=== PATIENT | female | born 1980 | race Caucasian/White ===

== ENCOUNTER 2017-08-10 13:33 | Emergency (ER) | payer SELFPAY ==
[2017-08-10 13:39] VITALS: RESP 16; TEMP 98.6
--- NOTE | 2017-08-10 15:03 | EDPHY ---
H & P Time Seen by Provider: 08/10/17 14:55 HPI/ROS: CHIEF COMPLAINT: Pelvic cramping, IUD coming out HISTORY OF PRESENT ILLNESS: 37-year-old female presents with pelvic cramping. Onset pelvic pain this morning. While she was in the shower she was able to feel the IUD extruding from her cervical os. Persistent pelvic cramping throughout the day. No vaginal bleeding, vomiting or dysuria. REVIEW OF SYSTEMS: Constitutional: No fever, no chills Eyes: No visual changes ENT: No sore throat Respiratory: No cough, no shortness of breath Cardiac: No chest pain Gastrointestinal: No nausea, no vomiting Genitourinary: No hematuria, no dysuria Musculoskeletal: No leg pain or swelling Skin: No rash Neurological: No headache, no numbness, no weakness Psychiatric: No depression Past Medical/Surgical History: Rheumatoid arthritis Social History: Smoking Status: Current every day smoker Physical Exam: General Appearance: Alert, pleasant Eyes: Pupils equal and round, no conjunctival pallor ENT, Mouth: Mucous membranes moist Neck: Normal inspection Respiratory: Lungs are clear to auscultation Cardiovascular: Regular rate and rhythm Gastrointestinal: Abdomen is soft, suprapubic tenderness Pelvic exam: BUSV normal, vag vault, IUD extruding thru os, no discharge Neurological: A&O, nonfocal, normal gait Skin: Warm and dry, no rash Extremities: normal inspection Psychiatric: Mood and affect normal Constitutional: Initial Vital Signs Temperature (C) 37.0 C 08/10/17 13:37 Heart Rate 97 08/10/17 13:37 Respiratory Rate 16 08/10/17 13:37 Blood Pressure 131/83 H 08/10/17 13:37 O2 Sat (%) 98 08/10/17 13:37 O2 Delivery Mode Room Air Allergies/Adverse Reactions: No Known Allergies Allergy (Unverified 05/17/15 14:30) Home Medications: Medication Instructions Recorded Humira 08/10/17 Methotrexate 08/10/17 Medical Decision Making ED Course/Re-evaluation: The IUD was easily removed by me with ring tip forceps. Increased pelvic cramping after the IUD removal. Ibuprofen 600 mg orally given. 4 p.m.-Feels better with resolution of pelvic cramping. Wants to go home. Differential Diagnosis: Differential diagnosis includes though it is not limited to ectopic , ovarian cyst, ovarian torsion, PID, UTI, appendicitis. - Data Points Medications Given: Discontinued Medications Ibuprofen (Motrin) 600 mg PO EDNOW ONE Stop: 08/10/17 15:39 Last Admin: 08/10/17 15:52 Dose: 600 mg Departure - Departure Disposition: Home, Routine, Self-Care Clinical Impression: IUD migration Qualifiers: Encounter type: initial encounter Qualified Code(s): T83.89XA - Other specified complication of genitourinary prosthetic devices, implants and grafts , initial encounter Condition: Good Instructions: Pelvic Pain in Women (ED) Additional Instructions: Follow-up with your learning design specialist if you desire alternative contraceptive. Referrals: NONE *PRIMARY CARE P,. [Primary Care Provider] - As per Instructions
[2017-08-10] MEDS ORDERED: IBUPROFEN 600 MG TAB PO ONE (15:38)
[2017-08-10 16:08] VITALS: BP 128/70; PULSE 81; O2SAT 96
== END 2017-08-10 16:08 | disposition home or self-care (01) ==
DX: T83.89XA Other specified complication of genitourinary prosthetic devices, implants and grafts, initial encounter (principal); F17.200 Nicotine dependence, unspecified, uncomplicated; Y73.2 Prosthetic and other implants, materials and accessory gastroenterology and urology devices associated with adverse incidents

== ENCOUNTER 2019-03-01 09:52 | Emergency (ER) | payer MEDICAID | END 2019-03-01 10:39 | disposition home or self-care (01) ==

== ENCOUNTER 2019-03-04 16:58 | Inpatient (IN) | payer MEDICAID | END 2019-03-07 17:19 | disposition home or self-care (01) | LOC: F3E 18:53 ==

== ENCOUNTER → 2019-03-04 | Outpatient (CLI) | payer MEDICAID | LOC: EMCIMAGING 12:12 ==